=== PATIENT | female | born 1950 | race African-American/Black ===

== ENCOUNTER 2020-08-25 04:14 | Emergency (ER) | payer OTHER ==
[~2020-08-25] VITALS: Ht 170.2 cm; Wt 82.0 kg
[2020-08-25] MEDS ORDERED: LIDOCAINE 1%/EPI 1:100,000 10 ML VIAL IJ ONE (06:30)
[2020-08-25 06:48] LABS: HEMATOCRIT. 27.8 % (36.0-48.0); HEMOGLOBIN. 9.1 g/dL (12.0-16.0); MEAN CORPUSCULAR HEMOGLOBIN 28.9 pg (28.0-32.0); MEAN CORPUSCULAR VOLUME 88.8 fL (81.0-99.0); MEAN PLATELET VOLUME 7.1 fl (7.4-10.4); PLATELET 434 x1000/uL (130-400); RED BLOOD CELL COUNT 3.14 mill/uL (4.2-5.4); RED CELL DISTRIBUTION WIDTH 15.6 % (11.6-14.6)
[2020-08-25 06:50] LABS: CHLORIDE 117 mEq/L (98-107)
[2020-08-25 07:19] LABS: PLATELET ESTIMATE INCREASED
[2020-08-25 10:00] VITALS: BP 128/70
== END 2020-08-25 10:45 | disposition home or self-care (01) ==
LOC: ER 04:14
DX: S01.01XA Laceration without foreign body of scalp, initial encounter (principal); R79.89 Other specified abnormal findings of blood chemistry; R51.9 Headache, unspecified; W01.198A Fall on same level from slipping, tripping and stumbling with subsequent striking against other object, initial encounter; Y93.01 Activity, walking, marching and hiking; Y92.018 Other place in single-family (private) house as the place of occurrence of the external cause; Y99.8 Other external cause status
CPT/HCPCS: 12001; 36415; 70450; 80053; 80320; 85025; 85610; 99284; J3490; G0480

== ENCOUNTER 2020-10-13 01:41 | Emergency (ER) | payer OTHER ==
[~2020-10-13] VITALS: Ht 167.6 cm; Wt 81.0 kg
[2020-10-13 07:32] VITALS: BP 151/54
== END 2020-10-13 09:00 | disposition home or self-care (01) ==
LOC: ER 01:41
DX: Z09 Encounter for follow-up examination after completed treatment for conditions other than malignant neoplasm (principal); M54.2 Cervicalgia
CPT/HCPCS: 99283